=== PATIENT | male | born 1960 | race American Indian/Alaskan Native ===

== ENCOUNTER 2017-05-23 08:25 | Emergency (ER) | payer MEDICARE ==
--- NOTE | 2017-05-23 09:24 | XRay Report ---
Chest 2 views: History: Chest pain. Findings: Marked cardiomegaly the trachea is midline. Mild pulmonary venous congestion. Normal CP angles. Stable pacemaker. Impression Cardiomegaly with mild pulmonary venous congestion.
[2017-05-23 10:15] LABS: Basophils % (Auto) 0.6 % (0.0-1.8); Eosinophils % (Auto) 0.9 % (0.0-4.3); Hemoglobin 10.3 gm/dl (11.8-15.2); Mean Corpuscular HGB Conc 32 % (32-34); Mean Corpuscular Volume 78 fl (84-94); Platelet Count 125 K/mm3 (140-440); Red Blood Count 4.13 M/mm3 (3.65-5.03); Red Cell Distribution Width 15.1 % (13.2-15.2); White Blood Count 4.6 K/mm3 (4.5-11.0)
[2017-05-23] MEDS ORDERED: SUBLIMAZE IV ONE (10:16)
[2017-05-23] MEDS ORDERED: LASIX IV ONE (10:16)
--- NOTE | 2017-05-23 10:17 | Emergency Department Report ---
ED General Adult HPI - General Chief complaint: Chest Pain Stated complaint: CHEST PAIN Time Seen by Provider: 05/23/17 10:15 Source: patient Mode of arrival: Ambulatory Limitations: No Limitations - History of Present Illness Initial comments: Patient is a 57-year-old male past medical history of heart failure who presents with several days of pain all over and leg swelling. He states that his symptoms have been going on for the last couple of days. He states that he has some myalgias are 4 out 10 located mostly to his joints moving makes it worse rest makes it better. It is an achy type of pain that does not radiate. She also states that he has some leg swelling bilaterally. He states this is consistent with this heart failure. He has not been on his medications because he has run out. Patient denies having any chest pain he just states that he is only slightly short of breath. - Related Data Home Medications Medication Instructions Recorded Confirmed Last Taken Allopurinol [Zyloprim] 100 mg PO QDAY 11/14/16 05/23/17 Unknown Albuterol Sulfate [Ventolin HFA] 2 puff IH Q4H PRN 05/23/17 05/23/17 Unknown Carvedilol [Coreg] 25 mg PO BID 05/23/17 05/23/17 Unknown traMADol [Ultram] 50 mg PO Q6HR PRN 05/23/17 05/23/17 Unknown Previous Rx's Medication Instructions Recorded Last Taken Type Aspirin EC [Aspirin Enteric Coated 81 mg PO QDAY #30 tablet 08/08/14 09/06/14 Rx TAB] Ipratropium [Atrovent NEB] 0.5 mg IH TIDRT #1 nebu 08/08/14 09/06/14 Rx Furosemide [Lasix TAB] 40 mg PO QDAY #30 tablet 05/23/17 Unknown Rx ISOSORBIDE MONOnitrate [Imdur ER] 30 mg PO QDAY #30 tablet 05/23/17 Unknown Rx Lisinopril [Zestril TAB] 20 mg PO QDAY #30 tablet 05/23/17 Unknown Rx Potassium Chloride [K-Dur] 20 meq PO QDAY #30 tablet 05/23/17 Unknown Rx glipiZIDE [Glucotrol] 10 mg PO BIDDIAB #60 tablet 05/23/17 Unknown Rx oxyCODONE [Roxicodone TAB] 10 mg PO Q6HR PRN #13 tablet 05/23/17 Unknown Rx Allergies Allergy/AdvReac Type Severity Reaction Status Date / Time albuterol Allergy Hives Verified 08/04/14 11:37 acetaminophen [From Tylenol] AdvReac Rash Verified 08/04/14 11:38 morphine AdvReac Hives Verified 08/04/14 11:38 ED Review of Systems ROS: Stated complaint: CHEST PAIN Other details as noted in HPI Constitutional: denies: chills, fever Eyes: denies: eye pain, eye discharge, vision change ENT: denies: ear pain, throat pain Respiratory: cough, SOB with exertion. denies: shortness of breath, wheezing Cardiovascular: edema. denies: chest pain, palpitations Endocrine: no symptoms reported Gastrointestinal: denies: abdominal pain, nausea, diarrhea Genitourinary: denies: urgency, dysuria Musculoskeletal: myalgia. denies: back pain, joint swelling, arthralgia Skin: denies: rash, lesions Neurological: denies: headache, weakness, paresthesias Psychiatric: denies: anxiety, depression Hematological/Lymphatic: denies: easy bleeding, easy bruising ED Past Medical Hx - Past Medical History Hx Hypertension: Yes Hx Heart Attack/AMI: Yes Hx Congestive Heart Failure: Yes Hx Diabetes: Yes Hx Deep Vein Thrombosis: No Hx Pulmonary Embolism: No Hx Asthma: No Hx COPD: No Hx Tuberculosis: No Hx HIV: No Additional medical history: anemia - Surgical History Hx Coronary Stent: No Hx Pacemaker: No Hx Internal Defibrillator: No - Social History Smoking Status: Former Smoker Substance Use Type: None - Medications Home Medications: Home Medications Medication Instructions Recorded Confirmed Last Taken Type Aspirin EC [Aspirin Enteric Coated 81 mg PO QDAY #30 tablet 08/08/14 05/23/17 Rx TAB] Ipratropium [Atrovent NEB] 0.5 mg IH TIDRT #1 nebu 08/08/14 05/23/17 09/06/14 Rx Allopurinol [Zyloprim] 100 mg PO QDAY 11/14/16 05/23/17 Unknown History Albuterol Sulfate [Ventolin HFA] 2 puff IH Q4H PRN 05/23/17 05/23/17 Unknown History Carvedilol [Coreg] 25 mg PO BID 05/23/17 05/23/17 Unknown History Furosemide [Lasix TAB] 40 mg PO QDAY #30 tablet 05/23/17 Unknown Rx ISOSORBIDE MONOnitrate [Imdur ER] 30 mg PO QDAY #30 tablet 05/23/17 Unknown Rx Lisinopril [Zestril TAB] 20 mg PO QDAY #30 tablet 05/23/17 Unknown Rx Potassium Chloride [K-Dur] 20 meq PO QDAY #30 tablet 05/23/17 Unknown Rx glipiZIDE [Glucotrol] 10 mg PO BIDDIAB #60 tablet 05/23/17 Unknown Rx oxyCODONE [Roxicodone TAB] 10 mg PO Q6HR PRN #13 tablet 05/23/17 Unknown Rx traMADol [Ultram] 50 mg PO Q6HR PRN 05/23/17 05/23/17 Unknown History ED Physical Exam - General Limitations: No Limitations General appearance: alert, in no apparent distress - Head Head exam: Present: atraumatic, normocephalic - Eye Eye exam: Present: normal appearance - ENT ENT exam: Present: mucous membranes moist - Neck Neck exam: Present: normal inspection - Respiratory Respiratory exam: Present: normal lung sounds bilaterally. Absent: respiratory distress - Cardiovascular Cardiovascular Exam: Present: regular rate, S3. Absent: systolic murmur, diastolic murmur, rubs, gallop - GI/Abdominal GI/Abdominal exam: Present: soft, normal bowel sounds - Rectal Rectal exam: Present: deferred - Extremities Exam Extremities exam: Present: other (+1 edema) - Back Exam Back exam: Present: normal inspection - Neurological Exam Neurological exam: Present: alert, oriented X3 - Psychiatric Psychiatric exam: Present: normal affect, normal mood - Skin Skin exam: Present: warm, dry, intact, normal color. Absent: rash ED Course Vital Signs 05/23/17 05/23/17 05/23/17 08:28 11:19 11:21 Temperature 97.7 F Pulse Rate 77 Respiratory 10 L 20 Rate Blood Pressure 107/72 O2 Sat by Pulse 99 100 Oximetry - Reevaluation(s) Reevaluation #1: 05/23/17 12:54 Patient is feeling better after IV medications are refilled the prescription medication and sent patient home. ED Medical Decision Making - Lab Data Result diagrams: 05/23/17 10:05 05/23/17 10:05 Lab Results 05/23/17 05/23/17 05/23/17 Range/Units 10:05 10:05 10:05 WBC 4.6 (4.5-11.0) K/mm3 RBC 4.13 (3.65-5.03) M/mm3 Hgb 10.3 L (11.8-15.2) gm/dl Hct 32.0 L (35.5-45.6) % MCV 78 L (84-94) fl MCH 25 L (28-32) pg MCHC 32 (32-34) % RDW 15.1 (13.2-15.2) % Plt Count 125 L (140-440) K/mm3 Lymph % (Auto) 30.0 (13.4-35.0) % [place] % (Auto) 12.1 H (0.0-7.3) % Eos % (Auto) 0.9 (0.0-4.3) % Baso % (Auto) 0.6 (0.0-1.8) % Lymph # 1.4 (1.2-5.4) K/mm3 [place] # 0.5 (0.0-0.8) K/mm3 Eos # 0.0 (0.0-0.4) K/mm3 Baso # 0.0 (0.0-0.1) K/mm3 Seg Neutrophils % 56.4 (40.0-70.0) % Seg Neutrophils # 2.6 (1.8-7.7) K/mm3 PT 14.5 (12.2-14.9) Sec. INR 1.07 (0.87-1.13) Sodium 139 (137-145) mmol/L Potassium 3.9 (3.6-5.0) mmol/L Chloride 99.7 (98-107) mmol/L Carbon Dioxide 24 (22-30) mmol/L Anion Gap 19 mmol/L BUN 17 (9-20) mg/dL Creatinine 0.9 (0.8-1.5) mg/dL Estimated GFR > 60 ml/min BUN/Creatinine Ratio 18.88 % Glucose 264 H (75-100) mg/dL Calcium 8.7 (8.4-10.2) mg/dL Troponin T < 0.010 (0.00-0.029) ng/mL NT-Pro-B Natriuret Pep (0-900) pg/mL 05/23/17 Range/Units 10:05 WBC (4.5-11.0) K/mm3 RBC (3.65-5.03) M/mm3 Hgb (11.8-15.2) gm/dl Hct (35.5-45.6) % MCV (84-94) fl MCH (28-32) pg MCHC (32-34) % RDW (13.2-15.2) % Plt Count (140-440) K/mm3 Lymph % (Auto) (13.4-35.0) % [place] % (Auto) (0.0-7.3) % Eos % (Auto) (0.0-4.3) % Baso % (Auto) (0.0-1.8) % Lymph # (1.2-5.4) K/mm3 [place] # (0.0-0.8) K/mm3 Eos # (0.0-0.4) K/mm3 Baso # (0.0-0.1) K/mm3 Seg Neutrophils % (40.0-70.0) % Seg Neutrophils # (1.8-7.7) K/mm3 PT (12.2-14.9) Sec. INR (0.87-1.13) Sodium (137-145) mmol/L Potassium (3.6-5.0) mmol/L Chloride (98-107) mmol/L Carbon Dioxide (22-30) mmol/L Anion Gap mmol/L BUN (9-20) mg/dL Creatinine (0.8-1.5) mg/dL Estimated GFR ml/min BUN/Creatinine Ratio % Glucose (75-100) mg/dL Calcium (8.4-10.2) mg/dL Troponin T (0.00-0.029) ng/mL NT-Pro-B Natriuret Pep 5269 H (0-900) pg/mL - EKG Data -: EKG Interpreted by Me - EKG Data 05/23/17 12:54 EKG shows sinus rhythm T-wave inversions in V5 and V6, LVH and no axis deviation. No ST segment elevations. - Radiology Data Radiology results: report reviewed, image reviewed Chest x-ray: Shows mild pulmonary venous congestion and cardiomegaly - Medical Decision Making Chief medical diagnosis: Heart failure exacerbation Differential diagnosis: Non-STEMI, viral syndrome, PNA, costochondritis CBC, CMP, EKG, troponin, IV Lasix, IV pain medication, troponin, cxr Patient most likely has heart failure exacerbation secondary to nonadherence to research the medication. I will refill patient's medication and he will get oral Lasix, oral potassium and a small dose of his gout medication. Discussed plan with patient he agrees with plan. Critical care attestation.: If time is entered above; I have spent that time in minutes in the direct care of this critically ill patient, excluding procedure time. ED Disposition Clinical Impression: Myalgia, Cough, Noncompliance with medication regimen CHF (congestive heart failure) Qualifiers: Congestive heart failure type: unspecified congestive heart failure type Congestive heart failure chronicity: acute on chronic Qualified Code(s): I50.9 - Heart failure, unspecified Gout Qualifiers: Gout site: unspecified site Gout etiology: unspecified cause Chronicity: unspecified Qualified Code(s): M10.9 - Gout, unspecified Disposition: TO HOME OR SELFCARE Is pt being admited?: No Does the pt Need Aspirin: No Condition: Stable Instructions: Heart Failure (ED), Opioid Pain Management (ED) Prescriptions: Furosemide [Lasix TAB] 40 mg PO QDAY #30 tablet glipiZIDE [Glucotrol] 10 mg PO BIDDIAB #60 tablet ISOSORBIDE MONOnitrate [Imdur ER] 30 mg PO QDAY #30 tablet Lisinopril [Zestril TAB] 20 mg PO QDAY #30 tablet oxyCODONE [Roxicodone TAB] 10 mg PO Q6HR PRN #13 tablet PRN Reason: Pain Potassium Chloride [K-Dur] 20 meq PO QDAY #30 tablet Referrals: ZEKE SOUZA MD [Staff Physician] - 3-5 Days
[2017-05-23 10:20] LABS: Mean Corpuscular Hemoglobin 25 pg (28-32)
[2017-05-23 10:25] LABS: INR 1.07 (0.87-1.13)
[2017-05-23 10:30] LABS: Anion Gap 19 mmol/L; BUN/Creatinine Ratio 18.88; Blood Urea Nitrogen 17 mg/dL (9-20); Calcium 8.7 mg/dL (8.4-10.2); Carbon Dioxide 24 mmol/L (22-30); Chloride 99.7 mmol/L (98-107); Glucose 264 mg/dL (75-100); Potassium 3.9 mmol/L (3.6-5.0); Sodium 139 mmol/L (137-145)
[2017-05-23 13:32] VITALS: BP 117/89
== END 2017-05-23 13:30 | disposition home or self-care (01) ==
LOC: ED 08:25
DX: I50.9 Heart failure, unspecified (principal); M10.9 Gout, unspecified; M79.1 Myalgia; R05 Cough; E11.9 Type 2 diabetes mellitus without complications; Z87.891 Personal history of nicotine dependence; D64.9 Anemia, unspecified; Z88.8 Allergy status to other drugs, medicaments and biological substances
CPT/HCPCS: 36415; 71020; 80048; 83880; 84484; 85025; 85610; 93005; 93010; 96374; 96375; 99284; J1940; J3010

== ENCOUNTER 2017-07-24 13:17 | Emergency (ER) | payer SELFPAY ==
[2017-07-24 14:04] LABS: Anion Gap 24 mmol/L; BUN/Creatinine Ratio 13; Blood Urea Nitrogen 22 mg/dL (9-20); Calcium 8.1 mg/dL (8.4-10.2); Carbon Dioxide 18 mmol/L (22-30); Chloride 97.1 mmol/L (98-107); Glucose 136 mg/dL (75-100); Potassium 3.5 mmol/L (3.6-5.0); Sodium 136 mmol/L (137-145)
[2017-07-24 14:22] LABS: Basophils % (Auto) 0.8 % (0.0-1.8); Eosinophils % (Auto) 1.7 % (0.0-4.3); Hematocrit 34.9 % (35.5-45.6); Hemoglobin 10.9 gm/dl (11.8-15.2); Mean Corpuscular HGB Conc 31 % (32-34); Mean Corpuscular Volume 80 fl (84-94); Platelet Count 169 K/mm3 (140-440); Red Blood Count 4.36 M/mm3 (3.65-5.03); Red Cell Distribution Width 17.6 % (13.2-15.2); White Blood Count 5.9 K/mm3 (4.5-11.0)
[2017-07-24 14:28] LABS: Mean Corpuscular Hemoglobin 25 pg (28-32)
--- NOTE | 2017-07-24 18:50 | XRay Report ---
FINAL REPORT EXAM: XR CHEST ROUTINE 2V HISTORY: Shortness of breath TECHNIQUE: Frontal and lateral chest radiographs. PRIORS: 11/14/2016. FINDINGS: Unchanged left chest AICD. Unchanged cardiomegaly. No focal consolidation. No pleural effusion. No pneumothorax. No acute osseous abnormality. IMPRESSION: No acute cardiopulmonary process.
[2017-07-24] MEDS ORDERED: XOPENEX IH ONE (22:36)
[2017-07-25 00:01] VITALS: BP 129/97
--- NOTE | 2017-07-25 00:10 | Emergency Department Report ---
ED Shortness of Breath HPI - General Chief Complaint: Dyspnea/Respdistress Stated Complaint: JOSHUA,WEAK IN LEGS Time Seen by Provider: 07/24/17 21:28 Source: patient Mode of arrival: Ambulatory Limitations: No Limitations - History of Present Illness Initial Comments: Patient with progressive SOB for 2 weeks and reports out of his steroids for 1 week for his COPD. He also has been out of his HTN and CHF meds for 1 week. He as not follow up with a PCP as instructed to do so before. His glucose has been controlled. MD Complaint: shortness of breath, cough -: Gradual Severity: moderate Pain Scale: 5 Quality: aching Improves With: nothing Worsens With: lying flat, exertion, coughing Known History Of: COPD, congestive heart failure, diabetes Associated Symptoms: denies other symptoms, cough, sputum production Treatments Prior to Arrival: none - Related Data Home Oxygen Therapy: No Home Medications Medication Instructions Recorded Confirmed Last Taken Allopurinol [Zyloprim] 100 mg PO QDAY 11/14/16 05/23/17 Unknown Albuterol Sulfate [Ventolin HFA] 2 puff IH Q4H PRN 05/23/17 05/23/17 Unknown Carvedilol [Coreg] 25 mg PO BID 05/23/17 05/23/17 Unknown traMADol [Ultram] 50 mg PO Q6HR PRN 05/23/17 05/23/17 Unknown Previous Rx's Medication Instructions Recorded Last Taken Type Aspirin EC [Aspirin Enteric Coated 81 mg PO QDAY #30 tablet 08/08/14 09/06/14 Rx TAB] Ipratropium [Atrovent NEB] 0.5 mg IH TIDRT #1 nebu 08/08/14 09/06/14 Rx Furosemide [Lasix TAB] 40 mg PO QDAY #30 tablet 05/23/17 Unknown Rx ISOSORBIDE MONOnitrate [Imdur ER] 30 mg PO QDAY #30 tablet 05/23/17 Unknown Rx Lisinopril [Zestril TAB] 20 mg PO QDAY #30 tablet 05/23/17 Unknown Rx Potassium Chloride [K-Dur] 20 meq PO QDAY #30 tablet 05/23/17 Unknown Rx glipiZIDE [Glucotrol] 10 mg PO BIDDIAB #60 tablet 05/23/17 Unknown Rx oxyCODONE [Roxicodone TAB] 10 mg PO Q6HR PRN #13 tablet 05/23/17 Unknown Rx Furosemide [Lasix TAB] 40 mg PO QDAY 14 Days #14 tablet 07/25/17 Unknown Rx Levalbuterol Hfa 45 Mcg/Puff 2 puff IH Q4H #1 inhalation 07/25/17 Unknown Rx [Xopenex Hfa (Nf)] Lisinopril [Zestril] 20 mg PO DAILY #14 tablet 07/25/17 Unknown Rx Potassium Chloride [K-Dur] 20 meq PO QDAY 14 Days #14 tablet 07/25/17 Unknown Rx Prednisone [predniSONE 10 mg 10 mg PO .TAPER #1 tab.ds.pk 07/25/17 Unknown Rx (6-Day Pack, 21 Tabs)] Allergies Allergy/AdvReac Type Severity Reaction Status Date / Time albuterol Allergy Hives Verified 08/04/14 11:37 acetaminophen [From Tylenol] AdvReac Rash Verified 08/04/14 11:38 morphine AdvReac Hives Verified 08/04/14 11:38 ED Review of Systems ROS: Stated complaint: JOSHUA,WEAK IN LEGS Other details as noted in HPI Constitutional: denies: chills, fever Eyes: denies: eye pain, eye discharge, vision change ENT: denies: ear pain, throat pain Respiratory: cough, shortness of breath, SOB with exertion, SOB at rest, wheezing Cardiovascular: denies: chest pain, palpitations Endocrine: no symptoms reported Gastrointestinal: denies: abdominal pain, nausea, diarrhea Genitourinary: denies: urgency, dysuria Musculoskeletal: denies: back pain, joint swelling, arthralgia Skin: denies: rash, lesions Neurological: denies: headache, weakness, paresthesias Psychiatric: denies: anxiety, depression Hematological/Lymphatic: denies: easy bleeding, easy bruising ED Past Medical Hx - Past Medical History Hx Hypertension: Yes Hx Heart Attack/AMI: Yes Hx Congestive Heart Failure: Yes Hx Diabetes: Yes Hx Deep Vein Thrombosis: No Hx Pulmonary Embolism: No Hx Asthma: No Hx COPD: No Hx Tuberculosis: No Hx HIV: No Additional medical history: anemia - Surgical History Past Surgical History?: Yes Hx Coronary Stent: No Hx Pacemaker: No Hx Internal Defibrillator: No Additional Surgical History: Internal Defib - Social History Smoking Status: Former Smoker Substance Use Type: Alcohol - Medications Home Medications: Home Medications Medication Instructions Recorded Confirmed Last Taken Type Aspirin EC [Aspirin Enteric Coated 81 mg PO QDAY #30 tablet 08/08/14 05/23/17 Rx TAB] Ipratropium [Atrovent NEB] 0.5 mg IH TIDRT #1 nebu 08/08/14 05/23/17 09/06/14 Rx Allopurinol [Zyloprim] 100 mg PO QDAY 11/14/16 05/23/17 Unknown History Albuterol Sulfate [Ventolin HFA] 2 puff IH Q4H PRN 05/23/17 05/23/17 Unknown History Carvedilol [Coreg] 25 mg PO BID 05/23/17 05/23/17 Unknown History Furosemide [Lasix TAB] 40 mg PO QDAY #30 tablet 05/23/17 Unknown Rx ISOSORBIDE MONOnitrate [Imdur ER] 30 mg PO QDAY #30 tablet 05/23/17 Unknown Rx Lisinopril [Zestril TAB] 20 mg PO QDAY #30 tablet 05/23/17 Unknown Rx Potassium Chloride [K-Dur] 20 meq PO QDAY #30 tablet 05/23/17 Unknown Rx glipiZIDE [Glucotrol] 10 mg PO BIDDIAB #60 tablet 05/23/17 Unknown Rx oxyCODONE [Roxicodone TAB] 10 mg PO Q6HR PRN #13 tablet 05/23/17 Unknown Rx traMADol [Ultram] 50 mg PO Q6HR PRN 05/23/17 05/23/17 Unknown History Furosemide [Lasix TAB] 40 mg PO QDAY 14 Days #14 tablet 07/25/17 Unknown Rx Levalbuterol Hfa 45 Mcg/Puff 2 puff IH Q4H #1 inhalation 07/25/17 Unknown Rx [Xopenex Hfa (Nf)] Lisinopril [Zestril] 20 mg PO DAILY #14 tablet 07/25/17 Unknown Rx Potassium Chloride [K-Dur] 20 meq PO QDAY 14 Days #14 tablet 07/25/17 Unknown Rx Prednisone [predniSONE 10 mg 10 mg PO .TAPER #1 tab.ds.pk 07/25/17 Unknown Rx (6-Day Pack, 21 Tabs)] ED Physical Exam - General Limitations: No Limitations General appearance: alert, in no apparent distress - Head Head exam: Present: atraumatic, normocephalic - Eye Eye exam: Present: normal appearance - ENT ENT exam: Present: mucous membranes moist - Neck Neck exam: Present: normal inspection - Respiratory Respiratory exam: Present: normal lung sounds bilaterally, wheezes (Bilaterally , No rhonchi or rales.). Absent: respiratory distress - Cardiovascular Cardiovascular Exam: Present: regular rate, normal rhythm. Absent: systolic murmur, diastolic murmur, rubs, gallop - GI/Abdominal GI/Abdominal exam: Present: soft, normal bowel sounds - Rectal Rectal exam: Present: deferred - Extremities Exam Extremities exam: Present: normal inspection - Back Exam Back exam: Present: normal inspection - Neurological Exam Neurological exam: Present: alert, oriented X3 - Psychiatric Psychiatric exam: Present: normal affect, normal mood - Skin Skin exam: Present: warm, dry, intact, normal color. Absent: rash ED Course Vital Signs 07/24/17 07/24/17 07/24/17 13:23 21:21 21:30 Temperature 98.2 F Pulse Rate 88 92 H Pulse Rate [ Anterior Bilateral Throughout] Respiratory 24 16 Rate Respiratory Rate [Anterior Bilateral Throughout] Blood Pressure 104/76 126/93 122/90 O2 Sat by Pulse 98 99 Oximetry 07/24/17 07/24/17 07/24/17 21:39 21:40 21:45 Temperature 98.9 F Pulse Rate 90 90 95 H Pulse Rate [ Anterior Bilateral Throughout] Respiratory 20 20 15 Rate Respiratory Rate [Anterior Bilateral Throughout] Blood Pressure 122/90 O2 Sat by Pulse 98 98 100 Oximetry 07/24/17 07/24/17 07/24/17 22:00 22:15 22:30 Temperature Pulse Rate 92 H 85 91 H Pulse Rate [ Anterior Bilateral Throughout] Respiratory 22 15 22 Rate Respiratory Rate [Anterior Bilateral Throughout] Blood Pressure 126/94 126/94 129/97 O2 Sat by Pulse 92 98 93 Oximetry 07/24/17 07/24/17 07/24/17 22:52 23:02 23:15 Temperature Pulse Rate Pulse Rate [ Anterior Bilateral Throughout] Respiratory Rate Respiratory Rate [Anterior Bilateral Throughout] Blood Pressure 129/97 129/97 129/97 O2 Sat by Pulse 83 L 86 85 Oximetry 07/24/17 07/24/17 23:31 23:40 Temperature Pulse Rate Pulse Rate [ 98 H Anterior Bilateral Throughout] Respiratory Rate Respiratory 18 Rate [Anterior Bilateral Throughout] Blood Pressure 129/97 O2 Sat by Pulse 78 L Oximetry ED Medical Decision Making - Lab Data Result diagrams: 07/24/17 13:36 07/24/17 13:36 Unremarkable - EKG Data -: EKG Interpreted by Me EKG shows normal: sinus rhythm, intervals (prolonged CO interval), QRS complexes (LBBB), ST-T waves (normal) Rate: normal - EKG Data When compared to previous EKG there are: no significant change Interpretation: unchanged when compared t (05/23/17) - Radiology Data Radiology results: report reviewed No acute pulmonary or cardiac process. - Medical Decision Making Patient with COPD exacerbation out of his steroids. Also has CHF but has not been on his lasix or his potassium. He does not appear to be in acute CHF exacerbation. We will refill his meds for 7 days but he has been instructed to go to the PCP group I am referring him to. He will also get his BP meds today. We will start him on a prednisone taper but he did very well on xopenex. We will Rx it but uncertain if it will be covered. He reports hives to albuterol. Critical care attestation.: If time is entered above; I have spent that time in minutes in the direct care of this critically ill patient, excluding procedure time. ED Disposition Clinical Impression: COPD with exacerbation Hypertension Qualifiers: Hypertension type: essential hypertension Qualified Code(s): I10 - Essential ( primary) hypertension CHF (congestive heart failure) Qualifiers: Congestive heart failure type: unspecified congestive heart failure type Congestive heart failure chronicity: chronic Qualified Code(s): I50.9 - Heart failure, unspecified Disposition: DC-01 TO HOME OR SELFCARE Is pt being admited?: No Does the pt Need Aspirin: No Condition: Good Instructions: Chronic Bronchitis (ED), Hypertension (ED) Prescriptions: Furosemide [Lasix TAB] 40 mg PO QDAY 14 Days #14 tablet Levalbuterol Hfa 45 Mcg/Puff [Xopenex Hfa (Nf)] 2 puff IH Q4H #1 inhalation Lisinopril [Zestril] 20 mg PO DAILY #14 tablet Potassium Chloride [K-Dur] 20 meq PO QDAY 14 Days #14 tablet Prednisone [predniSONE 10 mg (6-Day Pack, 21 Tabs)] 10 mg PO .TAPER #1 tab.ds.pk Referrals: ALTHEA ULRICH MD [Staff Physician] - 3-5 Days Time of Disposition: 00:23
== END 2017-07-25 01:10 | disposition home or self-care (01) ==
LOC: ED 13:17
DX: J44.1 Chronic obstructive pulmonary disease with (acute) exacerbation (principal); I10 Essential (primary) hypertension; I50.9 Heart failure, unspecified; E11.9 Type 2 diabetes mellitus without complications; D64.9 Anemia, unspecified; Z87.891 Personal history of nicotine dependence; Z98.890 Other specified postprocedural states; Z88.6 Allergy status to analgesic agent; Z88.8 Allergy status to other drugs, medicaments and biological substances; Z79.82 Long term (current) use of aspirin
CPT/HCPCS: 36415; 71020; 80048; 84484; 85025; 93005; 93010; 96372; 99284; J2920